=== PATIENT | male | born 1955 | race African-American/Black ===

== ENCOUNTER 2019-10-29 02:41 | Inpatient (IN) ==
--- NOTE | 2019-10-29 03:04 | PROVIDER DOCUMENTATION ---
HPI-General Adult - General Chief Complaint: Altered Mental Status Stated Complaint: low o2 Time Seen by Provider: 10/29/19 03:02 Source: patient, family, EMS Allergies/Adverse Reactions: Patient Allergies Allergy/AdvReac Type Severity Reaction Status Date / Time No Known Allergies Allergy Verified 10/29/19 03:24 Home Medications: Home Medication List Medication Instructions Recorded Confirmed Last Taken Type Aspirin [Adult Low Dose Aspirin EC] 81 mg PO DAILY 10/29/19 10/29/19 Unknown History Clorazepate Dipotassium 3.75 mg PO BID 10/29/19 10/29/19 Unknown History Metoprolol Succinate 25 mg PO DAILY 10/29/19 10/29/19 Unknown History Simvastatin 40 mg PO QHS 10/29/19 10/29/19 Unknown History - History of Present Illness -Gen Adult Nature of Presenting Problems: Pt is not sure what happened, remebers transport by EMS. states pt as ususal on CPAP started gasping for breath bout 0100 (she was up watching TV). Small amount of vomit or blood on m9reiud. pt deneis chest pain or sob. follow at [place] [facility] for CHF, HTN, lipids, boarder DM. no hx seizure or stroke or [place]. Review of Systems - Adult - REVIEW OF SYSTEMS - ADULT Constitutional: reports: no symptoms reported. denies: chills, fever, fatique Eyes: reports: no symptoms reported Ears, Nose, Mouth & Throat: reports: no symptoms reported Cardiovascular: reports: no symptoms reported. denies: chest pain, edema Respiratory: reports: no symptoms reported. denies: chronic cough, cough Gastrointestinal: reports: no symptoms reported Genitourinary: reports: no symptoms reported Musculoskeletal: reports: no symptoms reported Integumentary: reports: no symptoms reported Neurological: reports: no symptoms reported Psychiatric: reports: no symptoms reported Endocrine: reports: no symptoms reported Hematologic/Lymphatic: reports: no symptoms reported Allergic/Immunologic: reports: no symptoms reported All Other Systems: Reviewed and Negative Past History - Adult - PAST MEDICAL HISTORY-ADULT Review of Records: reports: Nursing Assessment Review, Medications Reviewed, Social history reviewed & non-contributory. Major Childhood Illnesses: reports: denies history Cardiovascular: reports: denies history Respiratory: reports: denies history Gastrointestinal: reports: denies history Obstetrical/Gynecological: reports: denies history Genitourinary: reports: denies history Musculoskeletal: reports: denies history Neurological: reports: denies history Endocrine/Immune: reports: denies history Other Conditions: reports: denies history Physical Exam-General - PHYSICAL EXAM-ADULT Initial Vital Signs Reviewed: Yes (p ox sl low) - CONSTITUTIONAL General Appearance: appears well, alert - EYES Eyes: PERRL/EOMI, pink conjunctivae - HEAD, EARS, NOSE, MOUTH & THROAT HENMT: normocephalic/atraumatic, moist mucous membranes - NECK Neck: full range of motion, supple - RESPIRATORY Respiratory: lungs clear, no pleuratic chest pain, no respiratory distress, no accessory muscle use - CARDIOVASCULAR Cardiovascular: normal peripheral pulses, regular rate, rhythm, no edema, no gallop, no JVD, no murmur - GASTROINTESTINAL (ABDOMEN) Abdominal Exam: normal bowel sounds, non tender, soft - MUSCULOSKELETAL Extremity: normal range of motion, non-tender, normal gait - SKIN Integumentary: normal color, normal turgor, warm/dry - NEUROLOGIC Neurologic: 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 pt was wearing CPAP mask (AMY) at the time, but spouse did not witness any seizure or nicolas hemoptysis. CTA-pulm has been reported as normal, w/ ? of "tiny" infiltrate w/o consolidation, no other acute findings. pt has no fever. at this time his chest is clear, he is smiling/laughing, and has RA 02 sat of 98% on monitor with good waveform. he denies any hx of known pulm disease, lifelong non-smoker, who reportedly jogs 5miles / day. will repeat ABG to see if discrepant with prior assay (pt has been on no 02 for at least the past 1-2 hours per family @ bedside. he is asking to be sent home ([facility] Patient tells me he has had occas nosebleeds "all my life," but has no visible BRB in oral or nasal cavity at this time.) Reassessment #2 Time Reassessed: 08:41 Status: unchanged (nurse brought me a strip showing sev'l seconds long run of Vtach. pt is taking metoprolol (and HCTZ/statin) from [place], says never admitted to a hospital lifelong, and it's unclear what if any prior eval was done. will check mag, discuss with cardiology.) Reassessment #3 Time Reassessed: 14:37 Status: unchanged ((patient has been serially reassessed since 08:41a): Dr. Gonzalez advised echo reveals dilated cardiomyopathy with est EF 52%; he did not recommend OP discharge. family very insistent upon transfer to [facility] for admission, however [place] reports no avail beds. will consult hospitalist) - CONSULTS/PCP/HOSPITALIST Notification #1 *Consult/PCP/Hospitalist*: Dr. Elmore Time Discussed: 09:00 Consult Disposition: F/U in office (Dr. Elmore recommend echo, and f/u OP in office if EF is reasonably normal.) #2 Consult: Hospitalist Time Discussed: 14:30 Consult Disposition: Admit - CHANGE OF SHIFT REPORT (ED Provider) 1 Report Given and Care Transferred to:: DR WANG Time of Transfer: 07:11 Items Pending: CT/MRI Results Departure - Departure Date of Disposition Decision: 10/29/19 Time of Disposition Decision: 14:52 DIAGNOSIS: Syncope, convulsive, Tongue injury, Non-sustained ventricular tachycardia Disposition: ADMITTED INPATIENT 09 Certified Medical Emergency: Emergent Condition: Critical Referrals and Follow-Ups: None,PCP [Primary Care Provider] - - Critical Care Note This patient required my direct & personal management of CC.: Yes Total Time (mins): 85 Critical Care Statement: This patient required my direct personal management to treat or rule out processes, the absence of which, could potentiallly result in sudden, clinically significant life or limb threatening deterioration. Attestation - Physician/ HILARIO Attestation The physician spent face to face time with patient:: Yes Advanced Practice Provider documentation review:: Supervising physician onsite a nd consulted in the evaluation and care of this patient. The physician did have a face to face encounter with the patient.
[2019-10-29 03:59] LABS: ALLEN TEST YES; BE 0.9 mmoll (-3.0-3.0); BLOOD TYPE ARTERIAL; HCO3-(ACT) 25.3 mmoll (20.0-26.0); O2(CT) 19.9 mL/dL (15.0-23.0); PCO2(98.6) 39 mmHg (35-45); PO2(98.6) 52 mmHg (60-100); SAMPLE BLOOD; SAO2 91.2 % (95.0-100.0); THB 16.1 g/dL (11.5-17.4); pH(98.6) 7.42 (7.35-7.45)
[2019-10-29 04:01] LABS: MODALITY ROOM AIR
[2019-10-29 04:39] LABS: BASO# 0.02 X1000 (0.0-0.2); BASO% 0.4 % (0.0-0.8); EOS# 0.05 X1000 (0.0-0.7); EOS% 1.1 % (0.0-10.0); HEMATOCRIT 46.9 % (42.0-52.0); HEMOGLOBIN 15.2 g/dL (14.0-18.0); IMM GRAN# 0.04 X1000 (0.0-0.04); IMM GRAN% 0.9 % (0.0-0.5); LYMPH# 1.05 X1000 (1.2-3.4); LYMPH% 23.1 % (20.5-51.1); MCHC 32.4 g/dL (33-37); MCV 95.5 FL (81-99); MONO% 8.8 % (1.7-9.3); MPV 9.8 FL (7.4-10.4); NEUT# 2.98 X1000 (1.4-6.5); NEUT% 65.7 % (42.2-75.2); PLT 274 X1000 (130-400); RBC 4.91 XMIL (4.7-6.1); RDW 12.9 % (11.5-14.5); WBC 4.54 X1000 (4.8-10.8)
[2019-10-29 04:41] LABS: INR 1.04; PROTIME 13.8 Seconds (11.0-16.0)
[2019-10-29 05:02] LABS: AGAP 17; ALB/GLOB RATIO 1.6; ALBUMIN 4.6 g/dL (3.5-5.0); ALKALINE PHOSPHATASE 60 U/L (32-122); BUN 10 mg/dL (8-22); CHLORIDE 98 mmol/L (98-107); COSMO 284; CREATININE 1.3 mg/dL (0.7-1.2); ESTIMATED GFR > 60; GLUCOSE 166 mg/dL (70-104); GOT 48 U/L (10-34); GPT 40 U/L (10-44); MAGNESIUM 2.3 mg/dL (1.5-2.7); SODIUM 141 mmol/L (136-145); TCO2 26 mmol/L (25-35); TOTAL BILIRUBIN 0.95 mg/dL (0.20-1.00); TOTAL PROTEIN 7.5 g/dL (6.3-8.3)
--- NOTE | 2019-10-29 05:20 | Diag Imaging Result Doc PS360 ---
EXAM: CHEST-2 VIEWS HISTORY: short of breath TECHNIQUE: Two views COMPARISON: None. FINDINGS: The lungs are well expanded. The heart is mildly prominent. The vessels are not distended. There are no infiltrates. No pleural effusions. IMPRESSION: Mildly prominent heart, but no other evidence of congestive failure. Electronically signed by Pritesh Guadarrama 10/29/2019 5:18 AM
[2019-10-29 05:32] LABS: URINE SOURCE CLEAN CATCH
[2019-10-29 06:02] LABS: BILIRUBIN URINE NEGATIVE (NEGATIVE); BLOOD URINE MODERATE (NEGATIVE); COLOR YELLOW; GLUCOSE URINE NEGATIVE (NEGATIVE); KETONE URINE TRACE mg/dL (NEGATIVE); LEUKOCYTES URINE NEGATIVE (NEGATIVE); NITRITE URINE NEGATIVE (NEGATIVE); PROTEIN URINE 50 mg/dL (NEGATIVE); SP GRAVITY URINE 1.019; TURBIDITY URINE CLEAR (CLEAR); UROBILINOGEN URINE NORMAL (NORMAL)
[2019-10-29 06:04] LABS: UR EPITHELIAL CELLS <10 /HPF (<10); URINE BACTERIA NEGATIVE /HPF; URINE RBC <10 /HPF (<10); URINE WBC <10 /HPF (<10)
--- NOTE | 2019-10-29 06:22 | Diag Imaging Result Doc PS360 ---
EXAM: CT ANGIOGRM PULMONARY ARTERIES HISTORY: difficulty breathing, left arm swollen TECHNIQUE: . CT chest with intravenous contrast. Pulmonary arterial protocol with MIP images COMPARISON: None. FINDINGS: There is normal opacification of the pulmonary arteries and their proximal branches. No aortic aneurysm or dissection. No pleural effusions. No cardiomegaly. There are calcified subcarinal and right hilar lymph nodes with a right lower lobe calcified granuloma. Minimal atelectasis or scarring in the right lung base. Tiny infiltrate superiorly in the left lower lobe. No consolidation. No bronchiectasis. IMPRESSION: 1.No pulmonary emboli 2.In the left lower lobe infiltrate 3.There is evidence of a prior granulomatous infection 4.Minimal atelectasis or scarring in the right lung base This exam was performed using automated exposure control, adjustment of mA or kV according to patient size, and/or use of iterative reconstruction technique. Electronically signed by Pritesh Guadarrama 10/29/2019 6:20 AM
--- NOTE | 2019-10-29 07:31 | Diag Imaging Result Doc PS360 ---
EXAM: CT HEAD W/O CONTRAST 10/29/2019 HISTORY: ams TECHNIQUE: This exam was performed using automated exposure control, adjustment of mA or kV according to patient size, and/or use of iterative reconstruction technique. COMMENT: There is no evidence of mass effect, bleed, or abnormal extra-axial fluid collection. There is some patchy ill-defined lucency in the white matter both hemispheres. The visualized paranasal sinuses are clear. The calvarium is intact. There are no previous studies. IMPRESSION: Minimal microvascular white matter changes. No evidence of acute disease. Electronically signed by Alec Parnell 10/29/2019 7:29 AM
--- NOTE | 2019-10-29 08:03 | EKG Report ---
Test Performed on : 10/29/2019 04:23:08 AM Test Reason : ED. NO EKG ORDER FOR MUSE Blood Pressure : / mmHG Vent. Rate : 073 BPM Atrial Rate : 073 BPM P-R Int : 180 ms QRS Dur : 094 ms QT Int : 424 ms P-R-T Axes : 034 -24 032 degrees QTc Int : 467 ms Normal sinus rhythm. Moderate voltage criteria for LVH, may be normal variant Inferior infarct , age undetermined Abnormal ECG No previous ECGs available Unconfirmed Result
[2019-10-29 09:06] LABS: ALLEN TEST YES; BLOOD TYPE ARTERIAL; HCO3-(ACT) 25.5 mmoll (20.0-26.0); METHB 0.9 % (0.0-1.5); MODALITY ROOM AIR; O2(CT) 21.2 mL/dL (15.0-23.0); O2HB 91.6 % (95.0-99.0); PCO2(98.6) 38 mmHg (35-45); PO2(98.6) 60 mmHg (60-100); SAMPLE BLOOD; SAO2 94.7 % (95.0-100.0); THB 16.5 g/dL (11.5-17.4); pH(98.6) 7.43 (7.35-7.45)
--- NOTE | 2019-10-29 12:28 | EKG Report ---
Test Performed on : 10/29/2019 12:19:41 PM Test Reason : chest tightness Blood Pressure : / mmHG Vent. Rate : 091 BPM Atrial Rate : 091 BPM P-R Int : 176 ms QRS Dur : 082 ms QT Int : 368 ms P-R-T Axes : 049 -09 021 degrees QTc Int : 452 ms Normal sinus rhythm. Minimal voltage criteria for LVH, may be normal variant Inferior infarct (cited on or before 29-OCT-2019) Abnormal ECG When compared with ECG of 29-OCT-2019 04:23, (Unconfirmed) No significant change was found Unconfirmed Result
--- NOTE | 2019-10-29 14:51 | ED EKG INTERP ---
This chart was entered by Nikole Thomas Scribe, acting as scribe for Stevan Parker MD. EKG Interpretation - EKG Time of EKG reading by physician:: 12:19 EKG Read and Signed by:: Stevan Parker EKG Interpretation (*Must complete 3 of following elements*): Abnormal Rate: 91 Rhythm: NSR [place]: normal QRS: LVH (minimal voltage criteria, may be normal variant) [place] Interval: normal Comments: inferior infarct, age undetermined Attestation - Physician/ HILARIO Attestation The physician spent face to face time with patient:: Yes Advanced Practice Provider documentation review:: Supervising physician onsite and consulted in the evaluation and care of this patient. The physician did have a face to face encounter with the patient. This chart was documented by the indicated scribe, (Nikole Thomas Scribe) and accurately reflects the services I performed and decisions made by me, Stevan Parker MD, as attested by the provider's signature.
[2019-10-29] MEDS: TYLENOL PO PRN (17:41)
[2019-10-29] MEDS ORDERED: ATIVAN IV PRN (17:50)
--- NOTE | 2019-10-29 18:35 | ECHO REPORT ---
ORDER DATE: 10/29/2019 INDICATION: Ventricular tachycardia, hypertension and diabetes. Limited echo. M-MODE MEASUREMENTS: Left ventricle end diastole: 4.8. Left ventricle end systole: 5.4. Posterior wall: 1.1. Interventricular septum: 1.1. Left atrium: 4.5. SUMMARY OF 2-DIMENSIONAL IMAGIN. The study is somewhat difficult. The global left ventricular systolic function is mildly impaired and is estimated to be somewhere in the range of 49% to 53%. There is questionable hypokinesis of the basal inferior wall. 2. The aortic valve appears to be grossly normal. 3. The mitral valve also appears to be grossly normal. 4. There is no pericardial effusion. In summary, this limited echo shows dilatation of the left ventricle with mild global impairment. Systolic function is estimated to be somewhere in the range of 49% to 53%. Questionable hypokinesis of the inferior wall. Clinical correlation recommended. cc: MD Stevan Bruner MD
[2019-10-29] MEDS ORDERED: ZOCOR PO SCH (21:00)
[2019-10-29] MEDS: VALIUM PO SCH (22:17)
--- NOTE | 2019-10-29 23:08 | HISTORY AND PHYSICAL ---
PRIMARY CARE PROVIDER: [place]. CHIEF COMPLAINT: Seizurelike activity. HISTORY OF PRESENT ILLNESS: Mr. Dhillon is a 64-year-old gentleman who carries a past medical history of PTSD, hypertension and hyperlipidemia. His only recollection was waking up in an ambulance. Per family report, his states that he was on his CPAP in the bed and gasping for breath about 1 a.m. while she was up watching TV. He had a small amount of vomit or blood on his brittany shirt. They suspect there was some seizurelike activity, but nothing that was tonic-clonic. His tongue is swollen. It does appear that he has bitten it. It is bruised on each side. He reports no history of seizures. He is on a medication that can be used for seizures, but he reports it is for his PTSD. He was getting ready to be discharged home after an echocardiogram in the ED, and he had a couple of runs of nonsustained ventricular tachycardia. After speaking with the battery wrecker operator, they recommended that he be kept in observation status overnight. The patient is requesting to be sent to the [place]; however, they do not have any rooms at this moment. His head CT did not show anything acute. He has undergone an echocardiogram. I do not have those results back. We will continue to monitor him on telemetry overnight. He does report lower extremity weakness, and he has trouble sitting up on his own. This is a patient who normally runs 5 miles per day and works out with weights almost on a daily basis, so this is definitely some new-onset weakness for him. We will go ahead and consult Cardiology as well as Neurology. We will put in for parnaud Alvarez in case of any seizures. PAST MEDICAL HISTORY: PTSD, hypertension, hyperlipidemia. PAST SURGICAL HISTORY: None. SOCIAL HISTORY: He is . He lives in [place]. He lives a very active lifestyle. He runs 5 miles a day. He lifts weights almost every day. No tobacco, alcohol or illicit drug use. FAMILY HISTORY: Mother of heart disease at the age of 52. Sister with diabetes. Father with prostate cancer. REVIEW OF SYSTEMS: Twelve-point review of systems was complete and negative except for those mentioned in HPI. PHYSICAL EXAMINATION: VITAL SIGNS: Temperature is 99.8 degrees, heart rate 92, respirations 18, blood pressure 138/83, O2 is 96% on room air. GENERAL: Mr. Dhillon is a pleasant 64-year-old male who is sitting up in the bed, in no acute distress. HEENT: Atraumatic, normocephalic. PERRL. NECK: Supple. Trachea midline. CARDIOVASCULAR: S1, S2 appreciated. No murmurs, gallops or rubs noted. RESPIRATORY: Lung sounds clear bilaterally. GASTROINTESTINAL: Soft, nontender, nondistended. Positive bowel sounds in 4 quadrants. EXTREMITIES: Negative for edema. NEUROLOGIC: No focal deficits noted. DIAGNOSTIC DATA: Head CT: Microvascular white matter changes. No evidence of acute disease. EKG: Normal sinus rhythm. Pulmonary arteriogram showed no PE; left lower lobe infiltrate; evidence of prior granulomatosis infection; minimal atelectasis or scarring in the right lung base. Chest x-ray showed mildly prominent heart, but no other evidence of congestive heart failure; no infiltrate. LABORATORY DATA: White count 4, hemoglobin and hematocrit 15 and 46, platelet count is 274,000. D-dimer was 291. Sodium 141, potassium 4.0, BUN 10, creatinine 1.3, blood glucose is 166, AST 48, ALT 40. Initial plasma lactate was 3.7. Urinalysis was negative for bacteria, negative for nitrites, moderate blood, 50 protein. ASSESSMENT AND PLAN: 1. Seizurelike activity. Unsure if it is related to any arrhythmias. We will monitor the patient overnight, put in for p.r.n. Ativan. Consult Neurology in the a.m. His head CT did not show anything acute. 2. Nonsustained ventricular tachycardia that was seen in the emergency department. The patient has undergone an echocardiogram. We will consult Cardiology in the a.m. Keep him on his home metoprolol. 3. Posttraumatic stress disorder. Continue his home medications. 4. Hyperlipidemia. Continue statin. 5. Hypertension. Further recommendations to follow physician evaluation, laboratory and diagnostic data. Dictated by JENNIFER Harvey for Fredrick Villarreal MD Addendum: Patient seen and examined by myself. Agree with JENNIFER note. It reflects my assessment and plan. Patient is being admitted to hospital for new onset seizure. Work up in on progress including EEG and MRI of brain and Neurology consult. Will consult Cardiology for non sustained ventricular tachycardia. Will monitor patient closely. cc: Fredrick Villarreal MD [facility]
[2019-10-30 06:54] LABS: BASO# 0.02 X1000 (0.0-0.2); BASO% 0.3 % (0.0-0.8); EOS# 0.03 X1000 (0.0-0.7); EOS% 0.4 % (0.0-10.0); HEMATOCRIT 45.2 % (42.0-52.0); HEMOGLOBIN 14.5 g/dL (14.0-18.0); LYMPH# 1.75 X1000 (1.2-3.4); LYMPH% 23.5 % (20.5-51.1); MCHC 32.1 g/dL (33-37); MCV 96.8 FL (81-99); MONO# 0.82 X1000 (0.11-0.59); MPV 9.3 FL (7.4-10.4); NEUT# 4.82 X1000 (1.4-6.5); NEUT% 64.8 % (42.2-75.2); PLT 243 X1000 (130-400); RBC 4.67 XMIL (4.7-6.1); RDW 12.9 % (11.5-14.5); WBC 7.44 X1000 (4.8-10.8)
[2019-10-30 07:04] LABS: AGAP 14; ALB/GLOB RATIO 1.2; ALBUMIN 4.1 g/dL (3.5-5.0); ALKALINE PHOSPHATASE 56 U/L (32-122); BUN 13 mg/dL (8-22); CALCIUM 8.8 mg/dL (8.8-10.2); CHLORIDE 101 mmol/L (98-107); COSMO 281; CREATININE 1.3 mg/dL (0.7-1.2); ESTIMATED GFR > 60; GLUCOSE 119 mg/dL (70-104); GOT 92 U/L (10-34); GPT 37 U/L (10-44); MAGNESIUM 2.2 mg/dL (1.5-2.7); POTASSIUM 3.5 mmol/L (3.5-5.1); SODIUM 140 mmol/L (136-145); TCO2 25 mmol/L (25-35); TOTAL BILIRUBIN 1.19 mg/dL (0.20-1.00); TOTAL PROTEIN 7.4 g/dL (6.3-8.3)
--- NOTE | 2019-10-30 07:30 | EKG Report ---
Test Performed on : 10/30/2019 06:50:42 AM Test Reason : follow up Blood Pressure : / mmHG Vent. Rate : 084 BPM Atrial Rate : 084 BPM P-R Int : 168 ms QRS Dur : 094 ms QT Int : 388 ms P-R-T Axes : 066 -12 033 degrees QTc Int : 458 ms Normal sinus rhythm. Minimal voltage criteria for LVH, may be normal variant Inferior infarct (cited on or before 29-OCT-2019) Abnormal ECG When compared with ECG of 29-OCT-2019 12:19, (Unconfirmed) No significant change was found Confirmed by Omar PEDERSON, Toby Russo ([id number]) on 10/30/2019 7:03:11 PM
[2019-10-30] MEDS: VALIUM PO SCH ×2 (09:26→20:50)
[2019-10-30] MEDS: ASPIRIN EC PO SCH (09:28)
[2019-10-30] MEDS: TOPROL XL PO SCH (09:29)
[2019-10-30 11:28] LABS: CK INDEX 0.4 (0.0-2.5); CK-MB 12.06 ng/mL (0.0-5.0)
[2019-10-30] MEDS ORDERED: ZOFRAN IV PRN (12:19)
--- NOTE | 2019-10-30 13:14 | Diag Imaging Result Doc PS360 ---
EXAM: MRI BRAIN W/WO CONTRAST INDICATION: Extreme weakness, seizure like activity, r/o CVA COMPARISON: CT head dated 10/29/2019. No prior MRI brain is available for comparison. FINDINGS: There is no evidence of acute infarct. The cerebellum and brainstem are unremarkable. There is patchy T2/FLAIR hyperintensity in the periventricular and subcortical white matter suggesting moderate microangiopathy. 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 There is no other discrete intracranial mass, mass effect, or intracranial hemorrhage. There is no evidence of abnormal intracranial enhancement. The surrounding soft tissues and bony structures are essentially unremarkable. IMPRESSION: Moderate white matter microangiopathy. No evidence of acute intracranial pathology. Electronically signed by Norris Mauricio 10/30/2019 1:12 PM
[2019-10-30 13:51] LABS: UR AMPHETAMINES QUAL NONE DETECTED (NONE DETECT); UR BARBITUATES QUAL NONE DETECTED (NONE DETECT); UR BENZODIAZEPIN QUAL NONE DETECTED (NONE DETECT); UR CANNABINOIDS QUAL NONE DETECTED (NONE DETECT); UR COCAINE QUAL NONE DETECTED (NONE DETECT); UR METHADONE QUAL NONE DETECTED (NONE DETECT); UR OPIATES QUAL NONE DETECTED (NONE DETECT); UR OXYCODONE QUAL NONE DETECTED (NONE DETECT); UR PCP QUAL NONE DETECTED (NONE DETECT)
[2019-10-30] MEDS: NS 1,000 ML IV SCH (15:32)
--- NOTE | 2019-10-30 17:21 | CARDIOLOGY CONSULTATION ---
DATE: 10/30/2019 CONSULTATION REQUESTED BY: Hospitalist service. REASON FOR CONSULTATION: Ventricular tachycardia, abnormal echocardiogram. HISTORY: Mr. Dhillon is a pleasant, 64-year-old black gentleman who was brought to the emergency room by family at 3 in the morning yesterday October 29. According to the at around 1 o'clock in the morning, the patient as he was sleeping, appeared to be struggling to breathe. He appeared to be show generalized stiffness. He was brought to the ER and apparently he had bitten his tongue. The initial blood work showed blood gas of PO2 of 52 mmHg, pH 7.42, pCO2 39 mmHg. He was hypoxemic. His hematology showed a white count of 4440 with hemoglobin 15.2. Chemistry, sodium 141, potassium 4.0, BUN 10, creatinine 1.3. His magnesium 2.3. The patient appeared to be very weak in the trunk and lower extremities as he came out of the episode of unresponsiveness. This morning, he says that he is still feeling weak in the legs and indeed he has a tremendous difficulty trying to stand up on his feet. They have not checked a CPK on him which would have helped us a little bit more. At any rate, he his tests done in the ER included a pulmonary angiogram that shows no pulmonary emboli. A left lower lobe infiltrate, evidence of prior granulomatous infection. Of note, his coronary arteries are really large. The diameter of the LAD is about 5 mm and the circumflex is about 6 mm and the left main is about 9 mm in diameter. It does appear to be ectatic. No calcifications noted on them. Echocardiogram was done and I have reviewed. The echocardiogram shows enlargement of the chamber with decreased ejection fraction probably in the neighborhood of 50%. Question of hypokinesis of the basal to mid inferior wall. No obvious valvular abnormality. The patient denies having chest pain. During the observation in the ER, they did telemetry tracings that showed runs of nonsustained ventricular tachycardia. At 8:11 in the morning, they documented a 12 beat run of ventricular tachycardia. EKG shows sinus rhythm with questionable inferior scar, LVH noted. The patient denies having any chest pain, dyspnea or swelling. He says that he is physically very active. He is able to walk 5 miles every other day without difficulty. He lifts weights. PAST MEDICAL HISTORY: Positive for hypertension, hyperlipidemia, obstructive sleep apnea using a CPAP machine. He has had PTSD. SURGICAL HISTORY: Negative. SOCIAL HISTORY: He is . He has children. Daughter is in the room with him. Not a smoker nor drinker. 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 He retired 10 years ago. FAMILY HISTORY: Mother had heart disease. Sister has diabetes. Father had prostate cancer. ALLERGIES: He is not allergic to any medicine. HOME MEDICATION: Aspirin 81 mg daily. Clorazepate 3.7 twice a day. Metoprolol succinate 25 mg daily. Simvastatin 4 mg daily. REVIEW OF SYSTEMS: He follows with the [facility], has a doctor there. Every so often, he has been sent to Cardiology for checkups. He has taken a stress test about 3 years ago. He has not been found to have any blockages as far as he is aware. PHYSICAL EXAMINATION: Vital signs: Blood pressure 110/79, temperature 98.9 degrees, pulse 75, respirations 18. General: The patient is awake, alert, oriented, in no distress. HEENT: Normal. Chest: Clear to auscultation and percussion. Heart: Sounds are regular rhythmic. I do not hear gallop or murmurs. Abdomen: Soft, nontender. No masses. No hepatomegaly. Extremities: Show good pulses. No peripheral edema. Neuro: Nonfocal moves 4 extremities. He does have definite weakness in the lower extremities. He does have good coordination with the upper extremities. His speech is clear. He is not agitated. He is oriented x3. IMPRESSION: 1. Patient who presented with what appeared to be an episode of unresponsiveness during sleep perhaps an episode of generalized seizure. 2. Nonsustained ventricular tachycardia noted on monitor. 3. Enlarged left ventricle with mild global hypokinesis. This could represent hypertensive heart disease. 4. Obstructive sleep apnea treated with CPAP system. 5. Hyperlipidemia. RECOMMENDATION: At this time, we will get a neurology consultation. We will check MRI of the brain without contrast and with contrast, carotid ultrasound, I would put her on aspirin. I would like to do a gated resting myocardial perfusion study to get a better assessment of the ejection fraction. Also look at the perfusion of the inferior wall. As I said, his coronary arteries are actually ectatic on the CT angiogram, which is somewhat less than ideal for evaluation of the heart and there is no calcification there, which is good. Further advice will be forthcoming. cc: Sg Gonzalez MD [facility]ully
--- NOTE | 2019-10-30 18:35 | CONSULTATION ---
DATE OF CONSULTATION: 10/30/2019 HISTORY OF PRESENT ILLNESS: Mr. Dhillon is 64 years old, and he had an episode raising question of seizure. He reports remembering putting on his CPAP mask, deciding to go to sleep and he next realized he was in an ambulance. Attentive at the bedside reports noticing him to appear to be gasping for air, with some rigidity in the limbs and then shaking in all limbs. He bit his tongue. There was not incontinence. Postictally, he was sore all over to the point he felt weak all over. He believes he is recovered today. He has not had previous seizure, and he has not had other episodes of altered awareness or memory gap. Neurologic history is negative for previous seizure, stroke, serious head injury. He does not abuse ethanol. He denies illicit drug use. He takes clorazepate irregularly, and has never had withdrawal problems. He had not made any recent medication changes. Workup here includes lab showing blood sugar initially 166, later 119. AST has been elevated at 48 and later 92. Lactate was normal at 1. WBC count was 4.5 initially and then 7.4. We do not have urine drug screen reported this admission. Initial noncontrast CT of the head showed fairly minor usual micro-ischemic change and nothing acute. Brain MRI just completed confirms moderate white matter microangiopathy with no evidence of acute infarction, bleeding, focal lesion. During evaluation here, he was noted to have period of ventricular tachycardia. Cardiac evaluation is in progress. There is reported to be past history of PTSD, dyslipidemia, hypertension. PHYSICAL EXAMINATION: On exam now, he is awake, alert, attentive, oriented, cheerful, appropriate. Speech is not dysarthric. Language function is intact on bedside testing. Recent and remote memory are good. Head and neck are unremarkable. There is no meningismus. Visual alvarenga are full tested grossly by confrontational finger counting. Extraocular movements are full. Facial motility is symmetric. Gag is intact. Tongue is midline. Hearing is good. Shoulder shrug is equal. Strength is normal in the arms and legs. He reports some discomfort with vigorous motor testing, but I could not find loss of power in any limb. Limb tone is symmetric. He did well on [id number] testing bilaterally. He reports discomfort in the hips and abdomen which limits him, but he performed [id number] testing without evidence of cerebellar problem. He reports diminished pinprick appreciation in a stocking pattern extending to about the ankles bilaterally. He has better pinprick appreciation over the dorsum of the hand than the palms bilaterally. Reflexes are trace at the ankles, 1+ at knees, 1+ at the wrists symmetrically. Plantar response is silent bilaterally. IMPRESSION AND PLAN: 1. History consistent with generalized seizure. This could still have been primarily cardiovascular event with arrhythmia, hypotension, syncope, and tonic/clonic features with syncope. If this was primarily central nervous system event, etiology other than seizure is not likely. There is not history of stroke or other brain lesion. There is not obvious toxic or metabolic explanation. He has been afebrile. 2. There is some clinical evidence of peripheral neuropathy. I don't think that needs urgent attention, but could be addressed as an outpatient later. I will order EEG. If that is not done soon, he might be discharged and return for outpatient EEG. We discussed usual restrictions and I suggested that he not drive, not operate equipment, and generally not get into any situation in which a seizure or other episode of collapse or altered awareness might result in serious injury to him or to someone else. Decision regarding adding medicine for seizure control can be made after the EEG. If he has another episode, we may need to reconsider. Thanks for asking Neurology to see Mr. Dhillon. cc: MD SANJIV Gordillo III
[2019-10-30] MEDS: TYLENOL PO PRN (20:50)
--- NOTE | 2019-10-30 23:10 | EEG REPORT ---
DATE: 10/30/2019 EEG NUMBER: [id number] COMMENT: This is a digitally recorded EEG on a 64-year-old patient with recent episode suggestive of seizure. FINDINGS: EKG artifact is prominent throughout the record with tachycardia noted. During waking, there is additional artifact due to muscle contraction and head movement. Portions of the record show normal EEG with 10 Hz posterior rhythm and symmetric polymorphic and rhythmic theta in the frontal and central background. At other times, there is higher amplitude generalized slowing, mostly rhythmic, mostly 4-6 Hz symmetrically across the hemispheres. There was no definite associated epileptiform discharge identified. Drowsing occurred briefly. Stage II sleep was not recorded. Hyperventilation with good effort did not significantly alter the record. Photic stimulation produced some symmetric entrainment. INTERPRETATION: Abnormal EEG because of periods of generalized slowing. CORRELATION: This is indicative of a diffuse encephalopathy and is nonspecific. Generalized rhythmic slowing is usually due to metabolic problem. The absence of epileptiform discharges on a single EEG does not exclude a clinical diagnosis of seizures, but there is nothing on this record to establish the presence of a seizure disorder. cc: Debora Medina III, MD MTDD
[2019-10-31 06:52] LABS: BASO# 0.02 X1000 (0.0-0.2); BASO% 0.2 % (0.0-0.8); EOS# 0.02 X1000 (0.0-0.7); EOS% 0.2 % (0.0-10.0); HEMATOCRIT 44.8 % (42.0-52.0); HEMOGLOBIN 14.6 g/dL (14.0-18.0); IMM GRAN# 0.02 X1000 (0.0-0.04); IMM GRAN% 0.2 % (0.0-0.5); LYMPH# 1.47 X1000 (1.2-3.4); LYMPH% 16.8 % (20.5-51.1); MCH 31.1 PG (27-31); MCHC 32.6 g/dL (33-37); MCV 95.5 FL (81-99); MONO# 0.96 X1000 (0.11-0.59); MPV 9.2 FL (7.4-10.4); NEUT# 6.27 X1000 (1.4-6.5); NEUT% 71.6 % (42.2-75.2); PLT 224 X1000 (130-400); RBC 4.69 XMIL (4.7-6.1); RDW 12.6 % (11.5-14.5); WBC 8.76 X1000 (4.8-10.8)
[2019-10-31 07:20] LABS: ESTIMATED GFR > 60
[2019-10-31 07:27] LABS: AGAP 13; BUN 12 mg/dL (8-22); CALCIUM 8.4 mg/dL (8.8-10.2); CHLORIDE 100 mmol/L (98-107); CK TOTAL 1613 U/L (24-204); COSMO 275; CREATININE 1.3 mg/dL (0.7-1.2); GLUCOSE 118 mg/dL (70-104); POTASSIUM 3.6 mmol/L (3.5-5.1); SODIUM 137 mmol/L (136-145); TCO2 24 mmol/L (25-35)
--- NOTE | 2019-10-31 07:31 | PROGRESS NOTE ---
DATE: 10/30/2019 SUBJECTIVE: The patient has no major complaints. His weakness has improved. OBJECTIVE: Vital Signs: Blood pressure 117/66, heart rate 94, respiratory rate 20, temperature 98.6 degrees, he has had a temperature of 100.1 degrees. Cardiovascular: Regular rate and rhythm. Pulmonary: Bilateral breath sounds. Clear to auscultation. GI: Soft, nontender, nondistended. Bowel sounds are positive. LABORATORY DATA: White count is 7, hemoglobin and hematocrit 14 and 45, platelets 243,000. Basic was normal, creatinine of 1.3, CPK of 2875, with a normal troponin. PROBLEM LIST: 1. Presumed seizure disorder. Neurology is on board. EEG is planned. We have not started any medication, and I will defer to Neurology concerning that, but with the tongue biting and passing out it does sound like he does have seizures. He is on Valium, but that is a chronic medication. 2. Nonsustained ventricular tachycardia. Unclear if that was secondary to the seizures or prior to it. Cardiology is following. He may need ischemic workup, but their recommendation. He had not had a vascular event. There is no stroke so there is nothing precluding him from left heart catheterization. We will continue to monitor closely and defer final decisions to Cardiology. 3. Rhabdomyolysis which may be related to his seizures and possibly statin therapy. We will continue hydration, monitor his levels and follow closely. CK levels are continuing to rise. We may need to consider bicarbonate infusion and colonization of his urine drug screen. DISPOSITION: Pending his clinical status he may be here another couple of days. cc: El Dodson MD [facility]
[2019-10-31] MEDS: ASPIRIN EC PO SCH (09:16)
[2019-10-31] MEDS: VALIUM PO SCH ×2 (09:16→21:59)
[2019-10-31] MEDS: TOPROL XL PO SCH (09:17)
[2019-10-31] MEDS: NS 1,000 ML IV SCH ×3 (10:56→21:59)
--- NOTE | 2019-10-31 12:30 | PROGRESS NOTE ---
DATE: 10/31/2019 SUBJECTIVE: Patient reports feeling fine, eating okay. He is feeling still some weakness all over. OBJECTIVE: Vital Signs: Temperature 98.9 degrees, heart rate 89, respiratory rate 18, blood pressure 117/82, O2 saturation 96% on room air. General Examination: This a 64-year-old, - [place] male, lying in bed in no acute distress. Cardiovascular: S1, S2 heard. No murmurs, gallops, or rubs. Regular rate and rhythm. Respiratory: Clear bilaterally to auscultation. No work of breathing or using accessory muscles. Abdomen: Soft, nontender to palpation. Bowel sounds present. No organomegaly. Extremities: No clubbing, cyanosis, or edema. Peripheral pulses present in both legs. Neurological: Patient is alert and oriented x3. Moves 4 extremities. LABORATORY DATA: White cell count 8.76, hemoglobin 14.6, hematocrit 44.8, platelets 224,000 with BMP that reveals creatinine 1.3 and creatine kinase of 1613. ASSESSMENT AND PLAN: 1. Presumed seizure disorder. EEG has been done but did not find any seizure activity. Neurology is on board. We will defer to Neurology to start any medication for seizure, but his symptoms are very concerning for that. He is on Valium but that is a chronic medication. We will see what Dr. Medina has to say on Saturday. 2. Nonsustained ventricular tachycardia. Cardiology following this patient. They have ordered Lexiscan, we will see what it shows. 3. Rhabdomyolysis. That is most likely related to seizures. CK continues to trend down. We will continue to monitor. We will continue with IV fluids. cc: Fredrick Villarreal MD
[2019-10-31] MEDS: TYLENOL PO PRN ×2 (15:39→23:16)
--- NOTE | 2019-10-31 17:55 | Diag Imaging Result Doc PS360 ---
EXAM: CHEST-2 VIEWS INDICATION: temperature TECHNIQUE: 2 views COMPARISON: 10/29/2019 FINDINGS: There is atelectasis and likely superimposed infiltrate at both lung bases. There is blunting of the left costophrenic angle suggesting a probable trace effusion. The cardiac silhouette is stable. IMPRESSION: Development of bibasilar atelectasis and infiltrate and a small left effusion. Electronically signed by Norris Mauricio 10/31/2019 5:53 PM
[2019-10-31] MEDS: ZOSYN 3.375 GM in NS 50 ML IV SCH (22:01)
--- NOTE | 2019-11-01 04:02 | Carotid Study ---
DATE: 10/30/2019 REQUESTING PROVIDER: Eunice. ASSOCIATE AUTOMATION ENGINEER: Rojelio. INDICATIONS: Possible CVA. EQUIPMENT: [employer] Vivid E9 ultrasound system with 9 L-D transducer. FINDINGS: Complete diagram of ultrasound images can be seen scanned in the patient's medical record. The peak systolic velocity noted on the right side is noted in a mid internal carotid artery and is noted to be 35. The peak systolic velocity noted on the left side is noted in the mid internal carotid artery and is noted to be 47. The calculated internal common ratio on the right 0.58, left 0.77. Calculated stenosis on the right 0 to 39 percent, left 0 to 39 percent. Both vertebral arteries appear to be antegrade flow. Velocities are low throughout the entirety of the system, which may limit the interpretive ability of this study. There appears to be some atherosclerosis, but at this time, does not produce any hemodynamically significant flow-limiting stenosis. INTERPRETATION: Velocities are slow throughout the entirety of the carotid system, but by strict velocity criteria, no hemodynamically significant flow-limiting stenosis. cc: MD Lawanda Veloz, KATHY
[2019-11-01] MEDS: ZOSYN 3.375 GM in NS 50 ML IV SCH (05:12)
[2019-11-01 07:25] LABS: AGAP 14; ALBUMIN 3.6 g/dL (3.5-5.0); BUN 10 mg/dL (8-22); CALCIUM 8.5 mg/dL (8.8-10.2); CHLORIDE 100 mmol/L (98-107); CK TOTAL 1025 U/L (24-204); COSMO 272; CREATININE 1.2 mg/dL (0.7-1.2); ESTIMATED GFR > 60; GLUCOSE 116 mg/dL (70-104); PHOSPHORUS 2.7 mg/dL (2.7-4.5); POTASSIUM 3.7 mmol/L (3.5-5.1); SODIUM 136 mmol/L (136-145); TCO2 22 mmol/L (25-35)
[2019-11-01] MEDS: VALIUM PO SCH (10:13)
[2019-11-01] MEDS: ASPIRIN EC PO SCH (10:15)
[2019-11-01] MEDS: TOPROL XL PO SCH (10:15)
[2019-11-01] MEDS: ZYVOX PO SCH ×2 (10:26→21:59)
[2019-11-01] MEDS: MAXIPIME 2 GM/NS 2 GM/100 ML IVPB IV SCH ×2 (10:26→22:00)
[2019-11-01] MEDS: LOVENOX SUBQ SCH (10:27)
[2019-11-01] MEDS: DUONEB (A & A) INH SCH ×4 (11:47→22:57)
[2019-11-01] MEDS: NS 1,000 ML IV SCH ×2 (14:37)
[2019-11-01] MEDS: LACTULOSE PO SCH ×2 (14:41→22:00)
[2019-11-01] MEDS: TYLENOL PO PRN (17:14)
--- NOTE | 2019-11-01 18:05 | PROGRESS NOTE ---
DATE: 11/01/2019 SUBJECTIVE: The patient was noted to have a fever of 101.7 this afternoon. He denies having any shortness of breath or cough. OBJECTIVE: Vital Signs: T-max 101.7 degrees, blood pressure 128/75, heart rate 97, respirations 16, O2 saturation 97% on 2 L nasal cannula. General: This is an elderly male lying in bed in no acute distress. Heart: S1, S2 normal. Regular rate and rhythm. Lungs: Equal air entry bilaterally. No wheezing. No rales. Abdomen: Positive bowel sounds. Soft, nontender, nondistended. Extremities: No edema, no cyanosis. Neurologic: The patient is alert and oriented x4. LABS: Sodium 136, potassium 3.7, chloride 100, CO2 22, BUN 10, creatinine 1.2, glucose 116. CK 1025. ASSESSMENT AND PLAN: 1. Pneumonia. The patient has been started on broad-spectrum antibiotics, bronchodilator therapy, and supplemental oxygen. We will also order an incentive spirometer. 2. Rhabdomyolysis. Continue with IV fluids. We will continue to monitor closely. 3. Possible seizure disorder. We will continue to monitor the patient closely. Neurology is following. 4. Constipation. We will start the patient on scheduled laxative therapy. 5. Obesity. Aware. 6. Nonsustained ventricular tachycardia. The patient had a stress test done. The results are currently pending. 7. Deep vein thrombosis prophylaxis. We will start the patient on Lovenox. 8. Continue with physical therapy. cc: Amanda Carbajal MD
[2019-11-01] MEDS: MIRALAX PO SCH (22:00)
[2019-11-02] MEDS: COLACE PO SCH ×3 (00:12→20:57)
[2019-11-02] MEDS: DUONEB (A & A) INH SCH ×5 (03:24→20:36)
[2019-11-02] MEDS: NS 1,000 ML IV SCH ×3 (04:28→21:14)
[2019-11-02 05:23] LABS: HEMATOCRIT 39.4 % (42.0-52.0); HEMOGLOBIN 12.9 g/dL (14.0-18.0); MCH 31.3 PG (27-31); MCHC 32.7 g/dL (33-37); MCV 95.6 FL (81-99); MPV 9.5 FL (7.4-10.4); RBC 4.12 XMIL (4.7-6.1); RDW 12.6 % (11.5-14.5); WBC 6.97 X1000 (4.8-10.8)
[2019-11-02 05:48] LABS: AGAP 11; ALBUMIN 3.5 g/dL (3.5-5.0); BUN 10 mg/dL (8-22); CALCIUM 8.5 mg/dL (8.8-10.2); CHLORIDE 100 mmol/L (98-107); CK TOTAL 815 U/L (24-204); COSMO 269; CREATININE 1.2 mg/dL (0.7-1.2); ESTIMATED GFR > 60; GLUCOSE 138 mg/dL (70-104); PHOSPHORUS 3.1 mg/dL (2.7-4.5); POTASSIUM 3.9 mmol/L (3.5-5.1); SODIUM 134 mmol/L (136-145); TCO2 23 mmol/L (25-35)
[2019-11-02] MEDS: TYLENOL PO PRN ×2 (05:54→15:43)
[2019-11-02] MEDS ORDERED: LEXISCAN ONE (08:16)
--- NOTE | 2019-11-02 09:13 | CARDIOLOGY PROGRESS NOTE ---
DATE: 11/02/2019 CHIEF COMPLAINT: Loss of consciousness, weakness in the legs. SUBJECTIVE: Mr. Dhillon is feeling better. He is almost back to his normal self. He is able to stand up much quicker now. His chest x-ray on 10/31/2019 was reported as indicating bibasilar atelectasis and infiltrate and a small left pleural effusion. Clinically, he is really not behaving as a case of pneumonia, although there was a temperature of 102.9 on 10/31/2019. This could be aspiration pneumonia given the fact that he did lose consciousness. His C-reactive protein also was elevated at 48.07 mg/L, and his sedimentation rate actually was negative. D- dimer was elevated at 2.91 micrograms per mL. His pulmonary arteriogram showed left lower lobe infiltrate on 10/29/2019. He is basically feeling just fine. OBJECTIVE: Blood pressure is 137/83, temperature 99 degrees, pulse 87, respirations 16. He is awake, follows commands. HEENT is unremarkable. Chest: Diminished breath sounds bilaterally with some dullness at the bases. Heart sounds are regular and rhythmic. I do not hear gallop or murmur. His telemetry for the past 48 hours has not indicated any arrhythmia. Abdomen is nontender. Extremities showed excellent pulses. Neurologic: He follows commands. Moves all 4 extremities. He stands up quickly. He is a bit unsteady on his feet. DIAGNOSTIC DATA: Blood work shows sodium 134, potassium 3.9, BUN is 10, creatinine 1.2. His CPK has dropped to 815. His highest CPK was 2875 which is the day after his admission. IMPRESSION: 1. The patient presented to the hospital with what appears to be a seizure during his sleep. 2. Question of arrhythmia on him. 3. Evidence of nonsustained ventricular tachycardia noted on monitor at the time of admission. 4. Enlarged left ventricle with mild global hypokinesis. 5. Obstructive sleep apnea. 6. Hyperlipidemia. RECOMMENDATIONS: Today, we are going to complete his nuclear stress test. The resting images were done on Saturday. Depending on the results of the stress test, we will advise further cardiac investigation or just follow up with a neurologist. I am really unsure as to what caused the seizure. There is no brain lesion noted on the imaging studies of the brain. There is moderate white matter microangiopathy. The only remaining issue will be the possibility of aspiration pneumonia with low grade fever. We may have to give him a course of antibiotics for a few days. [facility] We will have to transfer records to them for accurate and adequate continuity of care. cc: Sg Gonzalez MD
--- NOTE | 2019-11-02 10:00 | Diag Imaging Result Doc PS360 ---
EXAM: CHEST-2 VIEWS 11/02/2019 HISTORY: pneumonia TECHNIQUE: PA and lateral chest COMMENT: There is blunting of the left and right costophrenic angles. This is worse on the right than on the previous study of 10/31/2019. There are ill-defined opacities in both lower lobes again this is slightly worse than on the previous study. There is cardiomegaly. IMPRESSION: Bibasilar atelectasis versus pneumonia. Bilateral pleural effusions. Electronically signed by Alec Parnell 11/02/2019 9:58 AM
[2019-11-02] MEDS: LOVENOX SUBQ SCH (10:35)
[2019-11-02] MEDS: LACTULOSE PO SCH ×2 (10:35→20:57)
[2019-11-02] MEDS: DULCOLAX PR SCH (10:35)
[2019-11-02] MEDS: TOPROL XL PO SCH (10:35)
[2019-11-02] MEDS: ASPIRIN EC PO SCH (10:35)
[2019-11-02] MEDS: ZYVOX PO SCH ×2 (10:35→21:14)
[2019-11-02] MEDS: MAXIPIME 2 GM/NS 2 GM/100 ML IVPB IV SCH ×2 (10:35→21:14)
[2019-11-02] MEDS: MIRALAX PO SCH ×2 (10:36→20:57)
--- NOTE | 2019-11-02 15:11 | INFECTIOUS DISEASE CONSULT REP ---
DATE: 11/02/2019 CONCLUSION: The patient has a left lung pneumonia and possibly a bibasilar pneumonia. RECOMMENDATIONS: I agree with treating the patient with Zyvox and cefepime. DISCUSSION: The patient was admitted to the hospital with what appears to be a seizure. He also is complaining of upper abdominal pain, which is getting much better. His CT scan of the chest showed a left lower lobe infiltrate. A more recent chest x-ray shows bibasilar atelectasis versus pneumonia. The patient's CBC shows a white count of 6970, hemoglobin 12.9, and platelet count 219,000. The patient yesterday was started on cefepime and Zyvox, and since it has been started, the patient's fever has gradually decreased. It was initially 103, and today it is down to 98.5. MEDICATIONS: The patient currently is receiving cefepime and Zyvox. This is day 1 of both antibiotics. PAST MEDICAL HISTORY/REVIEW OF SYSTEMS: Eyes and Ears: The patient can hear and see well. Neck: No stiffness. Respiratory: See present illness. Cardiac: No chest pains or palpitations. GI: No nausea, vomiting, or diarrhea. : No dysuria. Bones/Joints/Muscles: No swollen joints or muscle aching. Neurologic: It is felt that the patient may have had a seizure initially when he got sick. PREVIOUS HOSPITALIZATIONS AND OPERATIONS: None. MEDICAL DISEASES: Positive for hypertension, posttraumatic stress disorder, hyperlipidemia, and possible seizure disorder. The patient told me he does have an irregular heart rate, but on examining him, the heart rate was regular. INFECTIOUS DISEASE HISTORY: Negative for pneumonia and urinary tract infection. FAMILY HISTORY: Positive for diabetes mellitus, hypertension, myocardial infarction, and cancer. SOCIAL HISTORY: The patient lives in [place]. He is . He does not have any pets at home. He does not smoke cigarettes or abuse drugs. He tells me he rarely drinks an alcoholic beverage. ALLERGIES: No known drug allergies. HOME MEDICATIONS: Include simvastatin and metoprolol. PHYSICAL EXAMINATION: Vital Signs: Temperature is 98.5 degrees, pulse 63, respirations 18, blood pressure 170/89. The patient is 6 feet 1 inch tall, weighs 220 pounds. General: This is an obese, middle-aged male. He is in no acute distress. HEENT: He can hear my spoken words and see near objects. He does not have any white patches in his mouth. Neck: No meningismus. Lungs: Clear to auscultation. Cardiovascular: Heart rate is regular. Abdomen: Soft and nontender. Neurologic: The patient is alert. He can move his extremities. He talks in a coherent fashion. He does not have a tremor. His memory as regarding his medical history appeared intact. Integument: No rash. Thank you for the consult. cc: Joesph Cyr MD
--- NOTE | 2019-11-02 15:31 | PROGRESS NOTE ---
DATE: 11/02/2019 SUBJECTIVE: The patient is resting comfortably in the chair. He states that he feels good. He has normal saturations on room air. He was noted to be febrile yesterday evening with a temperature of 101.7 degrees. OBJECTIVE: Vital Signs: Temperature 98.5 degrees, blood pressure 170/89, heart rate 79, respirations 18, O2 saturation 92% on room air. General: This is an elderly male sitting up in a chair in no acute distress. Heart: S1, S2 normal. Regular rate and rhythm. Lungs: Clear to auscultation bilaterally. Abdomen: Positive bowel sounds. Soft, nontender, nondistended. Extremities: No edema. No cyanosis. Neurologic: The patient is alert and oriented x4. LABORATORY DATA: White blood cell count 6.9, hemoglobin 12, hematocrit 39, platelets 219,000. Sodium 134, potassium 3.9, chloride 100, CO2 23, BUN 10, creatinine 1.2, glucose 138, calcium 8.5, phosphorus 3.1. Chest x-ray shows bibasilar atelectasis versus pneumonia. Bilateral pleural effusion. ASSESSMENT AND PLAN: 1. Pneumonia. The patient is on broad-spectrum antibiotic therapy. Procalcitonin level is currently pending. Continue bronchodilator therapy, supplemental oxygen and incentive spirometry. 2. Possible seizure disorder. We will await further recommendations from the neurologist. 3. Rhabdomyolysis. Slowly improving. Continue with IV fluids. 4. Bilateral pleural effusions. Continue to monitor closely. 5. Obesity. Aware. 6. Constipation. Continue with scheduled laxative therapy. 7. Nonsustained ventricular tachycardia. The patient completed his stress test today. We will await the results. 8. Deep vein thrombosis prophylaxis. Continue on Lovenox. 9. Continue with physical therapy. cc: Amanda Carbajal MD
--- NOTE | 2019-11-02 17:48 | Diag Imaging Result Document ---
PROCEDURE NAME: MYOCARDIAL PERF SCAN, STR/REST - 10/30/2019 SUMMARY: The patient was studied using 2-day protocol. The patient underwent resting sestamibi study on 10/30/2019. The patient was administered 34.3 mCi of technetium-99m sestamibi, after which resting cardiac images were obtained. The patient returned on 11/02/2019 for Lexiscan sestamibi study. The patient was stressed using a walking Lexiscan protocol. The patient was administered Lexiscan 0.4 mg intravenously, after which the heart rate went from 83 beats per minute to 116 beats per minute and the blood pressure went from 142/88 to 140/90. With Lexiscan, the patient denied chest discomfort. Following the administration of Lexiscan, the patient was administered 36.7 mCi of technetium-99m sestamibi after which gated stress cardiac images were obtained. Baseline ECG demonstrated sinus rhythm and very mild nonspecific T-wave flattening. With Lexiscan stress there were no diagnostic ST-segment changes. Occasional premature ventricular complex was observed. SPECT images were reconstructed in the short, horizontal, and vertical long axis. Review of these images demonstrated mildly diminished activity in the anterior wall on stress images which improves on resting images. There is also moderately diminished activity in the inferior wall on stress images which improves on resting images. SPECT images suggest left ventricular enlargement with gated images showing a calculated left ejection fraction 31% in the setting of global hypokinesis. TID ratio 1.07. CONCLUSIONS: 1. Adequate response to Lexiscan. 2. Clinically negative for chest pain. 3. Electrocardiographically negative for Lexiscan induced myocardial ischemia. 4. Abnormal Lexiscan sestamibi images demonstrating left ventricular enlargement, mild reversibility in the anterior wall, moderate reversibility inferior wall and a calculated left ejection fraction 31% in the setting of global hypokinesis. cc: MD Sg Spring MD
[2019-11-03] MEDS: DUONEB (A & A) INH SCH ×7 (00:15→22:59)
[2019-11-03 06:46] LABS: BASO# 0.02 X1000 (0.0-0.2); BASO% 0.3 % (0.0-0.8); EOS# 0.04 X1000 (0.0-0.7); EOS% 0.5 % (0.0-10.0); HEMATOCRIT 38.2 % (42.0-52.0); HEMOGLOBIN 12.2 g/dL (14.0-18.0); IMM GRAN# 0.02 X1000 (0.0-0.04); IMM GRAN% 0.3 % (0.0-0.5); LYMPH# 1.32 X1000 (1.2-3.4); LYMPH% 16.6 % (20.5-51.1); MCH 30.4 PG (27-31); MCHC 31.9 g/dL (33-37); MCV 95.3 FL (81-99); MONO# 1.11 X1000 (0.11-0.59); MONO% 13.9 % (1.7-9.3); MPV 9.5 FL (7.4-10.4); NEUT# 5.46 X1000 (1.4-6.5); NEUT% 68.4 % (42.2-75.2); PLT 243 X1000 (130-400); RBC 4.01 XMIL (4.7-6.1); RDW 12.5 % (11.5-14.5); WBC 7.97 X1000 (4.8-10.8)
[2019-11-03 07:13] LABS: AGAP 12; ALBUMIN 3.3 g/dL (3.5-5.0); BUN 13 mg/dL (8-22); CALCIUM 8.6 mg/dL (8.8-10.2); CHLORIDE 100 mmol/L (98-107); CK TOTAL 665 U/L (24-204); COSMO 270; CREATININE 1.2 mg/dL (0.7-1.2); ESTIMATED GFR > 60; GLUCOSE 122 mg/dL (70-104); PHOSPHORUS 3.8 mg/dL (2.7-4.5); POTASSIUM 3.8 mmol/L (3.5-5.1); SODIUM 134 mmol/L (136-145); TCO2 22 mmol/L (25-35)
--- NOTE | 2019-11-03 08:12 | CARDIOLOGY PROGRESS NOTE ---
DATE: 11/03/2019 CHIEF COMPLAINT: Episode of seizure, irregular heartbeat. SUBJECTIVE: Mr. Dhillon says that he was having some soreness in the chest yesterday and he is less sore today. He had not mentioned that to me. He is overall feeling somewhat better. His chest x-ray from yesterday shows bibasilar atelectasis with small pleural effusions. OBJECTIVE: Vital signs: Blood pressure is 121/76, pulse 88, respirations 18, temperature 99.1. General: He is awake, alert, oriented, in no distress. HEENT: Unremarkable. Chest: Diffusely breath sounds diffusely. Heart: Sounds are regular, rhythmic. No gallop or murmur. Abdomen: Nontender, soft. No masses. No hepatomegaly. Extremities: No edema. Neurologic exam: Follows commands, moves all 4 extremities. IMPRESSION: 1. A patient who presented with what appears to be a seizure. The reason for it is unclear. 2. The patient demonstrated nonsustained ventricular tachycardia. Last night, he has had a 5 beat run of ventricular tachycardia. The possibility of cardiac arrhythmia leading to seizure is very high. 3. Bilateral atelectasis/probably early pneumonia. This probably relates to the episode of loss of consciousness. At this time, the patient is afebrile and is feeling better. His white count is normal. His chest x-ray seems to be improving. 4. Abnormal myocardial perfusion stress test. The patient took a myocardial perfusion study yesterday and it suggests the possibility of ischemia of inferior wall with Lexiscan. In addition, his ejection fraction is globally impaired. There is a possibility that he may have ischemic cardiomyopathy. Of note on his computed tomography of the chest, his arteries appear to be ectatic. 5. History of sleep apnea syndrome. 6. History of hypertension. RECOMMENDATIONS: At this time, I think it is reasonable to recommend a left heart catheterization to confirm or rule out the presence of obstructive coronary heart disease. If that study is normal, then no further intervention will be warranted from Cardiology viewpoint and probably we may have to focus on the Neurology aspect of it. The nonsustained ventricular tachycardia is still something that may have to be followed perhaps with a loop recorder monitor. We will discuss that. He may require an implantable device to continue monitorization. We will follow the patient along. I have discussed with him the benefits, risks, and complications of cardiac catheterization, and he is agreeable to proceed. We will discuss with Dr. Davis Emlore to arrange for that. cc: Sg Gonzalez MD
[2019-11-03 08:31] LABS: INR 1.16
[2019-11-03 08:32] LABS: PTT 39.5 Seconds (22.3-41.8)
[2019-11-03] MEDS ORDERED: HEPARIN 1000 UNITS/NS 2,000 UNIT/1,000 ML IV.SOLN ONE (11:04)
[2019-11-03] MEDS ORDERED: CLAVE TWINSITE 32 IN 11959 ONE (11:05)
[2019-11-03] MEDS ORDERED: ANESTHESIA PB SET 88 IN 5742 ONE (11:05)
[2019-11-03] MEDS ORDERED: NS 500 ML ONE (11:05)
[2019-11-03] MEDS ORDERED: HEPARIN ONE (11:12)
[2019-11-03] MEDS: SODIUM BICARBONATE 8.4% 150 MEQ in D5W 1,000 ML IV SCH (11:15)
[2019-11-03] MEDS: TOPROL XL PO SCH (11:21)
[2019-11-03] MEDS: ZYVOX PO SCH ×2 (11:21→21:36)
[2019-11-03] MEDS: ASPIRIN EC PO SCH (11:21)
[2019-11-03] MEDS: MAXIPIME 2 GM/NS 2 GM/100 ML IVPB IV SCH ×2 (11:29→21:30)
[2019-11-03] MEDS: LOVENOX SUBQ SCH (12:04)
[2019-11-03] MEDS: LACTULOSE PO SCH ×2 (12:04→21:29)
[2019-11-03] MEDS: MIRALAX PO SCH ×2 (12:04→21:29)
[2019-11-03] MEDS: COLACE PO SCH ×2 (12:04→21:29)
[2019-11-03] MEDS: DULCOLAX PR SCH (12:04)
[2019-11-03] MEDS ORDERED: DILAUDID ONE (12:44)
[2019-11-03] MEDS ORDERED: VERSED ONE (12:44)
[2019-11-03] MEDS: NS 1,000 ML IV SCH (15:02)
--- NOTE | 2019-11-03 17:35 | PROGRESS NOTE ---
DATE: 11/03/2019 INTERVAL HISTORY: Patient going for cardiac cath today. No acute events overnight. No new complaints. Chest still a little sore, but improving. No further seizure activity. Approximately a 5 beat run of ventricular tachycardia overnight. No other acute events. Patient also still spiking some fevers here and there although appear to be trending down. Overall, blood cultures remain negative. REVIEW OF SYSTEMS: Twelve point review of systems negative as per interval history. LABORATORIES: WBC 7.9, hemoglobin 12.2, hematocrit 38.2, platelets 243,000. INR 1.1. Sodium 134, potassium 3.8, bicarbonate 22, BUN 13, creatinine 1.2, glucose 122, CK 665. IMAGING: MRI brain unremarkable. Cardiac stress test with moderate reversibility of the inferior wall and the EF of 31% with global hypokinesis. VITAL SIGNS: Temperature 101.1, pulse 92, respirations 18, blood pressure 125/85. O2 saturation 90% on room air. Under PHYSICAL EXAMINATION: General: No acute distress. Vitals: As above. HEENT: Normocephalic, atraumatic. Cardiovascular: Regular rate and rhythm. No murmurs noted. Pulmonary: Essentially clear to auscultation bilaterally. Some very faint bibasilar crackles. Abdomen: Soft, nontender, nondistended. Bowel sounds positive. Extremities: Peripheral pulses intact. No clubbing or cyanosis or edema. Neurologic: Cranial nerves grossly intact. No focal deficits. Psychiatric: Normal mood and affect. Awake, alert, oriented x3. ASSESSMENT AND PLAN: 1. Seizure, nonsustained ventricular tachycardia. The patient with seizure prior to admission. Concern is that he had a cardiac arrhythmia which precipitated this. Had a 5 beat run of ventricular tachycardia overnight and recent positive stress test. Going for cardiac cath today with further treatment depending on those results. 2. Likely pneumonia. Suspect aspiration event when he seized. Patient on antibiotics with Zyvox and cefepime. Continue this for now. On discharge, we will likely continue him on doxycycline and Levaquin to finish a course of treatment. 3. Acute versus chronic systolic congestive heart failure. Recent stress test showing significantly decreased EF at 31%. Uncertain as to the chronicity of this, but no sign of volume overload currently. 4. Rhabdomyolysis likely related to seizure and possibly to ventricular arrhythmia. This is improving rapidly. Continue IV fluids for now. 5. Hypertension. Continue home Toprol. 6. Hyperlipidemia. Continue home statin.
[2019-11-03] MEDS: TYLENOL PO PRN (18:23)
--- NOTE | 2019-11-03 18:33 | CARDIAC CATH REPORT ---
PROCEDURE NAME: - INDICATIONS: Chest pain, abnormal nuclear scan, reduced ejection fraction. PROCEDURES PERFORMED: 1. Left heart catheterization. 2. Selective coronary angiography. 3. Left ventriculogram. PROCEDURE IN DETAIL: Mr. Dhillon was brought to the catheterization laboratory in a fasting state. Informed consent was obtained. Prepped in usual fashion. He was anesthetized over the right femoral artery, and a 5-Jamaican sheath was placed via modified Seldinger technique. Catheters were introduced. Hemodynamic measurements made in the ascending thoracic aorta. Coronary angiography was performed in multiple views using JL4 and JR4 diagnostic catheters. Left heart catheterization and left ventriculogram was performed using the JR4. At the closure of the procedure, all sheaths and catheters were removed. Pressure was held. No apparent complications. Blood loss was 5 mL to 10 mL, and IV contrast was 50 mL. FINDINGS: 1. The left main originates from the left coronary cusp. It is very large and ectatic, but otherwise no significant disease. 2. Left anterior descending and circumflex vessels both originate from the left main. There does not appear to be any significant flow-limiting disease. There is markedly large and ectatic vessels specifically in the proximal portions of these vessels. 3. Right coronary originates from the right coronary cusp. It is a nondominant vessel. The left coronary is nondominant, no flow-limiting disease is identified. 4. Left ventricular pressure 116/14 with an LVEDP of 24. Aortic blood pressure 118/81 with a mean of 97. Left ventriculogram was difficult on this study. There was incomplete opacification of the left ventricular cavity. Suggested ejection fraction is around 40% to 45%. ASSESSMENT: Mr. Dhillon is a 64-year-old gentleman with chest pain and an abnormal nuclear scan. PLAN: He has no flow-limiting disease. He has markedly ectatic vessels. His ejection fraction is estimated in the 40% to 45% range with an elevated LVEDP. cc: Davis Elmore MD
[2019-11-04] MEDS: SODIUM BICARBONATE 8.4% 150 MEQ in D5W 1,000 ML IV SCH (03:19)
[2019-11-04] MEDS: DUONEB (A & A) INH SCH ×6 (03:37→23:13)
[2019-11-04 06:41] LABS: BASO# 0.02 X1000 (0.0-0.2); BASO% 0.3 % (0.0-0.8); EOS# 0.06 X1000 (0.0-0.7); EOS% 0.8 % (0.0-10.0); HEMATOCRIT 36.9 % (42.0-52.0); HEMOGLOBIN 12.2 g/dL (14.0-18.0); IMM GRAN# 0.03 X1000 (0.0-0.04); IMM GRAN% 0.4 % (0.0-0.5); LYMPH# 1.38 X1000 (1.2-3.4); LYMPH% 18.3 % (20.5-51.1); MCH 31.4 PG (27-31); MCHC 33.1 g/dL (33-37); MCV 94.9 FL (81-99); MONO# 1.14 X1000 (0.11-0.59); MONO% 15.1 % (1.7-9.3); MPV 9.4 FL (7.4-10.4); NEUT# 4.93 X1000 (1.4-6.5); NEUT% 65.1 % (42.2-75.2); PLT 274 X1000 (130-400); RBC 3.89 XMIL (4.7-6.1); RDW 12.7 % (11.5-14.5); WBC 7.56 X1000 (4.8-10.8)
[2019-11-04 06:54] LABS: AGAP 13; BUN 12 mg/dL (8-22); CALCIUM 8.5 mg/dL (8.8-10.2); CHLORIDE 93 mmol/L (98-107); COSMO 269; CREATININE 1.2 mg/dL (0.7-1.2); ESTIMATED GFR > 60; GLUCOSE 143 mg/dL (70-104); SODIUM 133 mmol/L (136-145); TCO2 27 mmol/L (25-35)
[2019-11-04] MEDS ORDERED: PNEUMOVAX 23 IM ONE (08:11)
--- NOTE | 2019-11-04 08:12 | CARDIOLOGY PROGRESS NOTE ---
DATE: 11/04/2019 CHIEF COMPLAINT: Seizure/arrhythmia. SUBJECTIVE: Mr. Dhillon is feeling fine. Yesterday, he underwent heart catheterization that basically confirmed the suspicion that he had ectatic coronary arteries as it was noted on the CT of the chest. Fortunately, he does not have any significant coronary obstruction. He had an uneventful night. His right groin feels fine. OBJECTIVE: Vital signs: Blood pressure 149/81, temperature 99.2, pulse 84, respirations 20. General: He is awake, alert, oriented, no distress. HEENT: Unremarkable. Chest: Diminished breath sounds at bases. Heart: Sounds are regular and rhythmic. No gallop or murmur. Abdomen: Nontender. Extremities: Showed good pulses. No edema. Neurologic exam: Follows commands, moves all 4 extremities. BLOOD WORK: Today, sodium 133, potassium 4.0, BUN 12, creatinine 1.2. IMPRESSION: 1. Patient presented after having an episode of what appears to be a seizure during his sleep. 2. Nonsustained ventricular tachycardia. Whether or not the seizure was related to the ventricular tachycardia is something that we have not been able to confirm. For the past 24 hours, there has been no indication of any seizures or arrhythmia. 3. Patient with what appears to be chronic systolic left ventricular dysfunction/chronic compensated heart failure. His Pro BNP was measured at 44 pg/ml , which is basically normal. That means that his left ventricular dysfunction is truly asymptomatic. He does have elevation of LVEDP on heart catheterization. 4. Abnormal Myocardial Perfusion Stress test: This probably was the result of technical artifact. He does have ectatic coronary arteries by heart catheterization,however, there is no coronary obstruction. Of note, his LDL cholesterol is 89 mg/dL and his HDL is 64 mg/dL which is good. 5. History of hypertension. RECOMMENDATIONS: At this time, I would suggest to provide the patient with a 30 day loop recorder monitor at the time of discharge. He really needs to decide where he is going to follow up for his Cardiology care. We will be glad to see him at the office. [facility] At this time, I do not have any further recommendations. The patient may have suffered a low- grade aspiration pneumonia as result of the seizure with abnormal chest x-ray, atelectasis noted on initial presentation and low-grade fever. That all could be just atelectatic. Of note, his white count has remained basically within adequate range. He does not appear septic or toxic. At this time, we are going to sign off. Please call us back if further assistance needed. cc: Sg Gonzalez MD [facility]
--- NOTE | 2019-11-04 09:05 | Diag Imaging Result Doc PS360 ---
EXAM: CHEST-2 VIEWS INDICATION: cough, fever. Probable pneumonia TECHNIQUE: 2 views COMPARISON: 11/02/2019 FINDINGS: Bibasilar airspace opacities suggesting pneumonia, likely with a component of atelectasis is approximately stable. Costophrenic angle blunting is again identified suggesting likely trace effusions. No new consolidation is identified. Cardiac silhouette is stable. IMPRESSION: Stable chest. Electronically signed by Norris Mauricio 11/04/2019 9:06 AM
[2019-11-04] MEDS: LACTULOSE PO SCH ×2 (09:18→20:27)
[2019-11-04] MEDS: COLACE PO SCH ×2 (09:18→20:26)
[2019-11-04] MEDS: ZYVOX PO SCH ×2 (09:18→20:27)
[2019-11-04] MEDS: TOPROL XL PO SCH (09:18)
[2019-11-04] MEDS: LOVENOX SUBQ SCH (09:19)
[2019-11-04] MEDS: ASPIRIN EC PO SCH (09:19)
[2019-11-04] MEDS: MIRALAX PO SCH ×2 (09:19→20:27)
[2019-11-04] MEDS: MAXIPIME 2 GM/NS 2 GM/100 ML IVPB IV SCH ×2 (09:19→20:28)
[2019-11-04] MEDS: DULCOLAX PR SCH (09:19)
--- NOTE | 2019-11-04 13:53 | PROGRESS NOTE ---
DATE: 11/04/2019 SUBJECTIVE: Mr. Dhillon has not had any further episodes of collapse, altered awareness, inattention, or other seizure like behavior. DATA: Cardiac workup is in progress. His EEG showed occasional generalized slowing but no epileptiform discharge. OBJECTIVE; He is awake, alert, attentive, cheerful, appropriate, oriented. PLAN: In light of his benign clinical course from neurologic standpoint, I do not have any urgent suggestion. If he has further episodes, we might consider checking the EEG again and we might consider adding medicine for seizure control. I will be glad to see him as an outpatient, if needed. Thanks for asking Neurology to see Mr. Dhillon. cc: MD SANJIV Gordillo III
--- NOTE | 2019-11-04 15:29 | PROGRESS NOTE ---
DATE: 11/04/2019 INTERVAL HISTORY: Patient with no further dyspnea but still intermittent fevers. Fever up to 101.0 yesterday although that does appear to be trending down. He was up to almost 103 on admission. No further cardiac events on telemetry. No further seizures. No other complaints. No acute events overnight. REVIEW OF SYSTEMS: Twelve point review of systems negative except as per interval history. LABORATORIES: WBC 7.5, hemoglobin 12.2, hematocrit 36.9, platelets 274. Sodium 133, potassium 4, bicarbonate 27, BUN 12, creatinine 1.2, glucose 143. IMAGING: Chest x-ray with stable bibasilar opacities suggesting pneumonia and trace effusions but no new process. VITAL SIGNS: T-max 101.0, pulse 96, respirations 17, blood pressure 130/80, O2 saturation 93% on 2 L by nasal cannula. PHYSICAL EXAMINATION: General: No acute distress. Vitals: As above. HEENT: Normocephalic, atraumatic. Moist mucous membranes. No cervical adenopathy. Cardiovascular: Regular rate and rhythm currently. No murmurs noted. Pulmonary: Faint bibasilar crackles remain but otherwise clear to auscultation bilaterally. Abdomen: Soft, nontender, nondistended. Bowel sounds positive. Extremities: Peripheral pulses intact. No clubbing or cyanosis. Neurologic: Cranial nerves grossly intact. No focal deficits identified. Psychiatric: Normal mood and affect. Awake, alert, oriented x3. ASSESSMENT AND PLAN: 1. Seizure, nonsustained ventricular tachycardia. The patient with seizure prior to admission. Favor cardiac arrhythmia as the cause. Had a 5 beat run of ventricular tachycardia a couple of days ago here and recent positive stress test. Cardiac catheterization performed today which did not show any significant stenosis. Will likely end up getting a long-term direct marketing representative for further evaluation. Neurology has seen the patient and plans on following up with him as an outpatient but does not feel that any further urgent evaluation is needed, MRI was negative. 2. Pneumonia. Likely aspiration event when he had his seizure. Patient on antibiotics with Zyvox and cefepime, currently still some fevers although they do appear to be trending down. Cultures no growth so far. If his fevers will go away then may be able to convert to an oral antibiotic regimen and discharge home tomorrow but if he remains febrile then may need antibiotic change or further evaluation. Infectious Disease following. We will see what they say. 3. Acute versus chronic systolic congestive heart failure. Recent stress test showed ejection fraction as low as 31. Catheterization today showing ejection fraction closer to 40. Still a new diagnosis but does not appear to be significantly volume overloaded at this time. Continue to monitor and await final Cardiology medication recommendations. 4. Rhabdomyolysis likely related to seizure and possibly to ventricular arrhythmia. It improved rapidly. Monitor. 5. Hypertension. Continue home Toprol. 6. Hyperlipidemia. Continue home statin. 7. Disposition: Possibly home tomorrow if he has no further fevers or may need further evaluation for new/occult/recurrent source of infection.
--- NOTE | 2019-11-04 15:52 | INFECTIOUS DISEASE PROGRESS NO ---
DATE: 11/04/2019 PRESENT ILLNESS: The patient is being treated now for a bibasilar pneumonia. MEDICATIONS: This is day 3 of treatment with cefepime and Zyvox for the presumed pneumonia. PHYSICAL EXAMINATION: Vital Signs: Temperature is 98.4 degrees, pulse 86, respirations 19, blood pressure 135/86. General: This is a healthy-appearing, middle-aged male. He is in no acute distress. Head/eyes/ears/nose/throat: He can hear my spoken words and see near objects. He does not have any drainage from his nose or ears. He does not have any white patches on his tongue. Neck: No pain with movement. Lungs: There were bibasilar rales. Cardiovascular: Heart rate is regular. Abdomen: Soft and nontender. Neurologic: The patient is alert. He is able to ambulate. There is no tremor. LAD AND RADIOLOGY: CBC-WBC 7.56, hgb 12.2, platelets 274K. Creatinine-1.2. GFR- >60. Procalcitonin-0.56. Chest x-ray shows bibasilar opacities. The high procalcitonin means that the patient has pneumonia. ASSESSMENT AND PLAN: The patient has a bibasilar pneumonia. For now, I am going to continue with Zyvox and cefepime. COMORBIDITIES: The patient has posttraumatic stress disorder. He also has a possible seizure disorder. cc: Joesph Cyr MD [facility]
[2019-11-05] MEDS: DUONEB (A & A) INH SCH ×3 (03:20→11:57)
[2019-11-05] MEDS: LACTULOSE PO SCH (08:09)
[2019-11-05] MEDS: ZYVOX PO SCH (08:09)
[2019-11-05] MEDS: DULCOLAX PR SCH (08:09)
[2019-11-05] MEDS: TOPROL XL PO SCH (08:09)
[2019-11-05] MEDS: ASPIRIN EC PO SCH (08:09)
[2019-11-05] MEDS: LOVENOX SUBQ SCH (08:09)
[2019-11-05] MEDS: MAXIPIME 2 GM/NS 2 GM/100 ML IVPB IV SCH (08:09)
[2019-11-05] MEDS: COLACE PO SCH (08:10)
[2019-11-05] MEDS: MIRALAX PO SCH (08:10)
--- NOTE | 2019-11-05 08:42 | CARDIOLOGY PROGRESS NOTE ---
DATE: 11/05/2019 CHIEF COMPLAINT: Possible seizure. LV dysfunction. SUBJECTIVE: Mr. Dhillon was kept in the hospital 1 more day because of the finding of presumed pneumonia. He has not had any more arrhythmias overnight. He is on a low dose beta thom. He is feeling fine. He had a bowel movement. He has been up and about. OBJECTIVE: Vital Signs: Blood pressure today is 117/78, temperature 97.6, pulse 93, and respirations 24. General: He is awake, alert, sitting upright, and in a good mood. HEENT: Unremarkable. Respiratory: Chest sounds clear to auscultation and percussion. Cardiovascular: Heart sounds are regular and rhythmic. I do not hear a gallop or murmur. Abdomen: His abdomen is nontender. Extremities: The extremities show +1 edema. Neurological: He follows commands and moves all extremities. IMPRESSION AND PLAN: 1. Patient who presented with a possible seizure during sleep. 2. Sleep apnea syndrome. 3. Nonsustained ventricular tachycardia noted on a monitor. There has been no recurrence of this since he was put on a beta thom. 4. Chronic left ventricular systolic dysfunction. Interestingly, the patient has no symptoms of heart failure and his proBNP level was normal at the time of presentation. This suggests that he has just a decreased ejection fraction without any corresponding symptoms. The reason for that is unclear. His coronary arteries showed ectasia without obstruction. 5. Abnormal myocardial perfusion stress test that led to the finding of ectatic coronary arteries without obstruction. 6. History of hypertension. RECOMMENDATIONS: At this time, the patient really seems to be stable from a cardiac viewpoint. I would recommend to keep him on a low dose beta thom since that is probably the most likely medication to help with the combination of both nonsustained ventricular tachycardia and left ventricular systolic dysfunction. If he did not have the V-tach we could have put him on TIFFANIE inhibitors based on what we learned from the SOLVD trial years ago. He really does not have congestive heart failure neither chemically nor clinically given the normal proBNP and the lack of symptoms. From my perspective he may be discharged whenever the primary service thinks that it is appropriate for him to go home. He has been kept in I believe because of the suspected pneumonia/atelectasis that probably is related to aspiration in connection with the episode of seizure. I will arrange for a 30 day loop recorder monitor upon discharge. I am signing off at this time. Thank you. Please call me if you have any questions or concerns. cc: Sg Gonzalez MD
--- NOTE | 2019-11-05 12:03 | PROGRESS NOTE ---
DATE: 11/05/2019 Mr. Dhillon continues seizure-free. He has not had any other episodes of collapse or altered awareness. I have reviewed the cardiology recommendations. I do not have anything to add from a neurology standpoint. I told him to report if he has any more episodes. We might then need to consider workup and possibly seizure management. I encouraged him to be careful with activities. Thanks for asking Neurology to see Mr. Dhillon. I will be glad to see him again whenever needed. cc: Debora Medina III, MD
[2019-11-05 12:31] VITALS: BP 139/82
--- NOTE | 2019-11-05 18:37 | INFECTIOUS DISEASE PROGRESS NO ---
DATE: 11/05/2019 HISTORY OF PRESENT ILLNESS: The patient has a bibasilar pneumonia. MEDICATIONS: This is day 4 of treatment with cefepime and Zyvox. PHYSICAL EXAMINATION: Vital Signs: Temperature is 97.8, pulse 91, respirations 17, blood pressure is 124/82. General: This is a healthy-appearing, middle-aged male. He is in no acute distress. Head/eyes/ears/nose/throat: He can hear my spoken words and see near objects. I did not notice any white coating on his tongue. Neck: No pain with movement. Lungs: The patient previously had bibasilar rales, but today I did not hear any rales. Cardiovascular: Heart rate is regular. Abdomen: Soft and nontender. Neurologic: The patient is alert. He ambulates without difficulty. He talks in a coherent fashion. LABORATORY AND RADIOLOGY: There is no new radiographic study. The patient's IgG level was 1305. IgA level was 237. Both of these are normal values. Procalcitonin is 0.56, which translates into that the patient is very likely to have pneumonia. ASSESSMENT AND PLAN: The patient has a bibasilar pneumonia. He is being discharged on Omnicef 300 mg p.o. every 12 hours for a total of 10 more days. Some of the side effects of the antibiotic including rash and diarrhea have been explained to the patient, who agrees with treatment. I am requesting that the patient have a return appointment in my office in 2 weeks, at which time the patient will be examined, and a repeat chest x-ray will be will be obtained. COMORBIDITIES: Posttraumatic stress disorder and possible seizure disorder. cc: Joesph Cyr MD
--- NOTE | 2019-11-06 14:32 | DISCHARGE SUMMARY ---
ADMISSION DATE: 10/29/2019 DISCHARGE DATE: 11/05/2019 CONSULTATIONS: 1. Cardiology, Dr. Gonzalez. 2. Infectious Disease, Dr. Cyr. PERTINENT STUDIES: CT head with microvascular changes but no acute process. CTA chest with no pulmonary embolus but does show left lower lobe infiltrate consistent with pneumonia. Nuclear cardiac stress test with EF 31% and possible moderate reversible inferior wall ischemia. Brain MRI with chronic changes but no acute process. No stroke, mass or other cause for seizure. Carotid Doppler no hemodynamically significant stenosis. EEG essentially unremarkable. Cardiac catheterization with no flow-limiting disease. The EF on that study was 40 to 45 percent. DISCHARGE DIAGNOSES: 1. Seizure. 2. Nonsustained ventricular tachycardia. 3. Pneumonia. 4. Acute versus chronic systolic congestive heart failure without exacerbation. [*] chronic systolic congestive heart failure. 5. Rhabdomyolysis. 6. Hypertension. 7. Hyperlipidemia. HOSPITAL COURSE: The patient presented via ambulance. Patient's recall of events was poor but per family, he was on CPAP in bed when he began gasping for breath. He had some tonic-clonic seizure-like activity, bit his tongue and was postictal for quite a while. He had never had any seizure activity before. On initial evaluation, no neurologic issue was found. He was found to have pneumonia, but O2 saturations are okay. He was placed on empiric antibiotics and telemetry. He had a couple episodes of nonsustained ventricular tachycardia raised a concern that a cardiac arrhythmia may have been the cause of his seizure. Cardiology was involved and he had further evaluation with a stress test which showed possible reversible ischemia and a decreased ejection fraction, which was a new diagnosis for the patient. They took him to cardiac cath which did not show any significant blockages, but did confirm lowered ejection fraction, although not quite as bad as it appeared on the stress test. Neurology was involved and completed workup with MRI, carotid Doppler and EEG which were all essentially unremarkable and they favored non neurologic cause of his seizure and did not recommend starting antiepileptics at this time. The patient had acceptable O2 saturation, but significant fever on admission up to 102.8. Continued to have some fevers off and on, but they trended down overall, and he was afebrile for almost 48 hours at the time of discharge. Cultures remained negative. He was on Zyvox and cefepime for most of his hospitalization, but transitioned to cefdinir at discharge. Cardiology elected to set patient up for loop recorder to keep further eye on his heart rhythm as he did not have any other ongoing pathologic rhythms other than those 2 short episodes of nonsustained ventricular tachycardia. He was placed on Toprol because of his new diagnosis of chronic systolic congestive heart failure, but Cardiology recommended against placing him on an Farhan at this time. His other chronic comorbidities were stable during this hospitalization. DISCHARGE DIET: Cardiac. DISCHARGE MEDICATIONS: 1. Simvastatin 40 mg p.o. at bedtime. 2. Aspirin 81 mg p.o. daily. 3. Librium as previously prescribed. 4. Metoprolol 25 mg extended release 25 mg p.o. q day. 5. Cefdinir 300 mg p.o. q. 12 hours. DISCHARGE VITAL SIGNS: Temperature 97.5 degrees, pulse 92, respirations 17, blood pressure 139/82, O2 saturation 96% on room air. FOLLOWUP AND PLAN: The patient discharging home to get a loop recorder monitor cardiac status on. Patient going on a short course of oral antibiotic to finish treatment of his pneumonia. The patient to follow up with PCP, Cardiology and Infectious Disease. TIME SPENT: Greater than 30 minutes spent arranging discharge and counseling patient.
== END 2019-11-05 14:05 | disposition home or self-care (01) | DRG 286 ==
LOC: ED 02:41 → 4N 17:09 → SUATTDRO 17:09 → 2N 11-03 13:47
PROVIDERS: ATTEND Internal Medicine